=== PATIENT | female | born 1955 | race Caucasian/White ===

== ENCOUNTER 2016-12-02 18:36 | Emergency (ER) | payer OTHER ==
[~2016-12-02] VITALS: Ht 157.5 cm; Wt 78.5 kg
[~2016-12-02 18:36] MED LIST: ASPEC81 PO; ASTN NAE; ATOR-22 PO; BLAC160C PO; ESCI1TAB10 PO; LAMO100T16 PO; LEVO25TA5 PO; MULT-240 PO; OMEG12006 PO; OXYB10TA PO; RISP1TAB68 PO
[2016-12-02 18:41] VITALS: TEMP 36.6; Ht 157.5 cm; Wt 78.5 kg
[2016-12-02] MEDS ORDERED: ALBUT/IPRATROP 3MG/0.5MG NEB 3 ML VIAL INH STA (19:22)
[2016-12-02 19:49] LABS: BASO % 0.3 %; BASO ABS # 0.02 K/uL (0-0.2); COMPLETE YES; EOS % 3.2 %; HEMATOCRIT 36.8 % (37-47); IG% 0.2 %; LYMPH % 31.7 %; LYMPH ABS # 2.06 K/uL (1.2-3.4); MEAN CELL VOLUME 91.8 fL (80-100); MEAN CORPUSCULAR HEMOGLOBIN 30.9 pg (25-34); MEAN CORPUSCULAR HGB CONC 33.7 g/dl (32-36); MEAN PLATELET VOLUME 9.7 fL (7.4-10.4); MONO % 5.7 %; NEUT % 58.9 %; PLATELET COUNT 186 K/uL (130-400); RED BLOOD COUNT 4.01 M/uL (4.2-5.4)
[2016-12-02] MEDS ORDERED: PREG75CA PO (20:32)
[2016-12-02] MEDS ORDERED: SYN50 PO (20:32)
[2016-12-02] MEDS ORDERED: DTR/5 PO (20:32)
[2016-12-02] MEDS ORDERED: ATOR-24 PO (20:33)
[2016-12-02 20:34] LABS: ALB/GLOB RATIO 1.1 (0.9-2); ALKALINE PHOSPHATASE 75 U/L (45-117); ALT/SGPT 35 U/L (12-78); BLOOD UREA NITROGEN 16 mg/dl (7-18); BUN/CREATININE RATIO 14.4 (10-20); CALCIUM 9.5 mg/dl (8.5-10.1); CARBON DIOXIDE 27 mmol/L (21-32); CHLORIDE 103 mmol/L (98-107); GLUCOSE 126 mg/dl (70-99); SODIUM 138 mmol/L (136-145)
--- NOTE | 2016-12-02 20:37 | DIAGNOSTIC IMAGING REPORT ---
CHEST ONE VIEW PORTABLE HISTORY: Short of breath. COMPARISON: Chest 08/13/2015. FINDINGS: Linear densities at the left lung base. The lungs are otherwise clear. No pleural effusions. No pneumothorax. The heart is normal in size. IMPRESSION: Left basilar linear densities. This favors subsegmental atelectasis. Electronically signed by: Greg Stanley M.D. 12/02/2016 8:35 PM Dictated Date/Time: 12/02/2016 8:34 PM
--- NOTE | 2016-12-02 21:33 | EMERGENCY ROOM VISIT NOTE ---
History Report prepared by Bri: Genesis Lynn Under the Supervision of: Dr. Tyler Sears D.O. First contact with patient: 19:16 Chief Complaint: SHORTNESS OF BREATH Stated Complaint: SOB Nursing Triage Summary: Pt reports she was hospitalized November 14 for asthma exacerbation and left sided pnx Pt reports today increased SOB History of Present Illness The patient is a 61 year old female who presents to the Emergency Room with complaints of worsening SOB starting this morning. Her SOB worsened throughout the day and she called her PCP who sent her to the ED. She had this before 2.5 weeks ago when she was diagnosed with left sided pneumonia. She also has a history of asthma. Her SOB worsened today after she mowed the lawn. She reports cough, fatigue, and weakness. She has an albuterol inhaler that she uses at home , but it has not helped. She does not have a nebulizer. She was on steroids recently after being discharged from the hospital with pneumonia. Source of History: patient Onset: this morning Position: other (global) Quality: other (SOB) Timing: worsening Associated Symptoms: + cough, + fatigue, + weakness Review of Systems See HPI for pertinent positives & negatives. A total of 10 systems reviewed and were otherwise negative. Past Medical & Surgical Medical Problems: (1) Bipolar disorder (2) Dyslipidemia (3) GERD (gastroesophageal reflux disease) (4) Hypothyroidism (5) Stress incontinence Surgical Problems: (1) S/P tonsillectomy and adenoidectomy (2) S/P tubal ligation Family History No pertinent family history Social History Smoking Status: Former Smoker Marital Status: Housing Status: lives with family Current/Historical Medications Scheduled Aspirin (Aspirin EC Low Dose), 81 MG PO DAILY Atorvastatin (Lipitor), 40 MG PO HS Escitalopram Oxalate (Lexapro), 20 MG PO DAILY Lamotrigine (Lamictal), 100 MG PO DAILY Levothyroxine Sodium (Synthroid), 50 MCG PO QAM Multiple Vitamins W/ Minerals (Womens One Daily), 1 TAB PO DAILY [place]-3 Fatty Acids ([place] 3), 1 CAP PO BID Oxybutynin Chloride (Ditropan), 5 MG PO BID Pregabalin (Lyrica), 150 MG PO BID Risperidone (Risperdal), 1 MG PO HS Scheduled PRN Azelastine Hcl (Astelin Nasal [place]), 2 SPRAYS EMIGDIO BID PRN for congestion Allergies Coded Allergies: Amoxicillin (Unverified Allergy, Unknown, UNKNOWN, 12/02/16) Erythromycin (Verified Allergy, Unknown, 07/20/09) Levofloxacin (Verified Allergy, Unknown, 07/20/09) Penicillins (Verified Allergy, Unknown, 07/20/09) Sulfa Antibiotics (Verified Allergy, Unknown, ., 08/13/15) Tetracycline (Verified Allergy, Unknown, 07/20/09) Physical Exam Vital Signs Date Time Temp Pulse Resp B/P (MAP) Pulse Ox O2 Delivery O2 Flow Rate FiO2 12/02/16 20:41 80 18 110/65 93 Room Air 12/02/16 19:37 76 12/02/16 19:26 Room Air 12/02/16 18:41 36.6 83 20 144/74 99 Room Air Physical Exam CONSTITUTIONAL/VITAL SIGNS: Reviewed / noted above. GENERAL: Non-toxic in appearance. INTEGUMENTARY: Warm, dry, and [place]. HEAD: Normocephalic. EYES: without scleral icterus or trauma. ENT/OROPHARYNX: clear and moist. LYMPHADENOPATHY/NECK: Is supple without lymphadenopathy or meningismus. RESPIRATORY: Lungs clear and equal. No increased work of breathing. CARDIOVASCULAR: Regular rate and rhythm. GI/ABDOMEN: Soft and nontender. No organomegaly or pulsatile mass. No rebound or guarding. Normal bowel sounds. EXTREMITIES: Warm and well perfused. BACK: No CVA tenderness. NEUROLOGICAL: Intact without focal deficits. PSYCHIATRIC: normal affect. MUSCULOSKELETAL: Normally developed with good muscle tone. Medical Decision & Procedures ER Provider Diagnostic Interpretation: X ray results and stated below per my interpretation and radiology interpretation. CHEST ONE VIEW PORTABLE HISTORY: Short of breath. COMPARISON: Chest 08/13/2015. FINDINGS: Linear densities at the left lung base. The lungs are otherwise clear. No pleural effusions. No pneumothorax. The heart is normal in size. IMPRESSION: Left basilar linear densities. This favors subsegmental atelectasis. Electronically signed by: Greg Stanley M.D. 12/02/2016 8:35 PM Dictated Date/Time: 12/02/2016 8:34 PM Laboratory Results 12/02/16 19:39 Red Blood Count 4.01, Mean Corpuscular Volume 91.8, Mean Corpuscular Hemoglobin 30.9, Mean Corpuscular Hemoglobin Concent 33.7, Mean Platelet Volume 9.7, Neutrophils (%) (Auto) 58.9, Lymphocytes (%) (Auto) 31.7, Monocytes (%) (Auto) 5.7, Eosinophils (%) (Auto) 3.2, Basophils (%) (Auto) 0.3, Neutrophils # (Auto) 3.83, Lymphocytes # (Auto) 2.06, Monocytes # (Auto) 0.37, Eosinophils # (Auto) 0.21, Basophils # (Auto) 0.02 12/02/16 19:39 Test 12/02/16 19:39 White Blood Count 6.50 K/uL (4.8-10.8) Red Blood Count 4.01 M/uL (4.2-5.4) Hemoglobin 12.4 g/dL (12.0-16.0) Hematocrit 36.8 % (37-47) Mean Corpuscular Volume 91.8 fL (80-100) Mean Corpuscular Hemoglobin 30.9 pg (25-34) Mean Corpuscular Hemoglobin Concent 33.7 g/dl (32-36) Platelet Count 186 K/uL (130-400) Mean Platelet Volume 9.7 fL (7.4-10.4) Neutrophils (%) (Auto) 58.9 % Lymphocytes (%) (Auto) 31.7 % Monocytes (%) (Auto) 5.7 % Eosinophils (%) (Auto) 3.2 % Basophils (%) (Auto) 0.3 % Neutrophils # (Auto) 3.83 K/uL (1.4-6.5) Lymphocytes # (Auto) 2.06 K/uL (1.2-3.4) Monocytes # (Auto) 0.37 K/uL (0.11-0.59) Eosinophils # (Auto) 0.21 K/uL (0-0.5) Basophils # (Auto) 0.02 K/uL (0-0.2) RDW Standard Deviation 44.8 fL (36.4-46.3) RDW Coefficient of Variation 13.3 % (11.5-14.5) Immature Granulocyte % (Auto) 0.2 % Immature Granulocyte # (Auto) 0.01 K/uL (0.00-0.02) Anion Gap 8.0 mmol/L (3-11) Est Creatinine Clear Calc Drug Dose 52.8 ml/min Estimated GFR () 63.2 Estimated GFR (Non- 54.5 BUN/Creatinine Ratio 14.4 (10-20) Calcium Level 9.5 mg/dl (8.5-10.1) Total Bilirubin 0.4 mg/dl (0.2-1) Aspartate Amino Transf (AST/SGOT) U/L (15-37) Alanine Aminotransferase (ALT/SGPT) 35 U/L (12-78) Alkaline Phosphatase 75 U/L (45-117) Total Creatine Kinase U/L (26-192) Creatine Kinase MB 2.1 ng/ml (0.5-3.6) Creatine Kinase MB Ratio (0-3.0) Troponin I < 0.015 ng/ml (0-0.045) Total Protein 7.2 gm/dl (6.4-8.2) Albumin 3.7 gm/dl (3.4-5.0) Globulin 3.5 gm/dl (2.5-4.0) Albumin/Globulin Ratio 1.1 (0.9-2) Laboratory results as stated above per my review. Medications Administered Medications (Trade) Dose Ordered Sig/Tabatha Route Start Time Stop Time Status Last Admin Dose Admin Albuterol/ Ipratropium (Duoneb) 3 ml NOW STAT INH 12/02/16 19:22 12/02/16 19:23 DC 12/02/16 20:00 3 ML ECG Indication: SOB/dyspnea Rate (beats per minute): 76 Rhythm: normal sinus Findings: no ectopy, other (no acute injury) ED Course 1917: Previous medical records were reviewed. The patient was evaluated in room C6. A complete history and physical examination was performed. 1921: Duoneb 3 ml INH. 2137: On reevaluation, the patient is resting comfortably. I discussed the results and findings with the patient. She verbalized agreement of the treatment plan. She was discharged home. Medical Decision the differential was considered includes acute myocardial infarction, acute coronary syndrome, myocarditis, pericarditis, pericardial effusions /tamponade, esophageal perforation, pulmonary embolism, pneumonia, pneumothorax, cardiomyopathy, congestive heart, anemia , COPD/asthma exacerbation. Patient was found to have a slightly elevated blood pressure due to circumstances. I do not believe that the patient requires hypertension monitoring. Medication Reconciliation: I attest that I have personally reviewed the patient' s current medication list. This is a 61-year-old female who presents to the ED with a chief complaint of shortness of breath. The patient reports increased shortness of breath today as well as a cough and some generalized weakness. She has a history of asthma. She denies any other significant symptoms. She does report being on steroids November 14 and she had a pneumonia that time. Her vital signs are stable. Her physical exam was normal. EKG shows a normal sinus rhythm. A chest x-ray did not show acute disease. CBC is normal, complete metabolic panel was unremarkable. Troponin was negative. The patient was told the results of the test. She is felt to be stable for discharge and outpatient follow-up. She was given a nebulizer treatment here. Impression Primary Impression: Dyspnea Additional Impression: Bronchitis Scribe Attestation The scribe's documentation has been prepared under my direction and personally reviewed by me in its entirety. I confirm that the note above accurately reflects all work, treatment, procedures, and medical decision making performed by me. Departure Information Dispostion Home / Self-Care Referrals Jimmy Valdivia M.D. (PCP) Patient Instructions ED Dyspnea Shortness of Breath, My [facility] Additional Instructions Continue use of your inhaler. Follow-up with your doctor for further care and evaluation in 1-2 days. Return to the emergency department for worsening or new symptoms or any concerns. You have been examined and treated today on an emergency basis only. This is not a substitute for, or an effort to provide, complete comprehensive medical care. It is impossible to recognize and treat all injuries or illnesses in a single emergency department visit. It is therefore important that you follow up closely with your doctor. Call as soon as possible for an appointment. Problem Qualifiers
[2016-12-02 21:41] VITALS: BP 116/78; PULSE 83; O2SAT 98
== END 2016-12-02 21:41 | disposition home or self-care (01) ==
LOC: C.EDB 18:36 → C.EDC 21:41
DX: J40 Bronchitis, not specified as acute or chronic (principal); F41.9 Anxiety disorder, unspecified; R78.5 Finding of other psychotropic drug in blood; E03.9 Hypothyroidism, unspecified; K21.9 Gastro-esophageal reflux disease without esophagitis; Z98.51 Tubal ligation status; Z98.890 Other specified postprocedural states; Z87.891 Personal history of nicotine dependence; Z79.82 Long term (current) use of aspirin; Z79.899 Other long term (current) drug therapy; Z88.0 Allergy status to penicillin; Z88.1 Allergy status to other antibiotic agents; Z88.2 Allergy status to sulfonamides; Z88.3 Allergy status to other anti-infective agents; Z88.8 Allergy status to other drugs, medicaments and biological substances

== ENCOUNTER 2022-08-21 10:20 | Inpatient (IN) ==
--- NOTE | 2022-08-21 11:09 | Emergency Department Note ---
History of Present Illness General Chief complaint: Mental Health Evaluation Stated complaint: DEPRESSION,PARANOIA Time Seen by Provider: 08/21/22 10:44 Source: patient Mode of arrival: ambulatory Limitations: no limitations History of Present Illness Maximum Pain Intensity: 5 This patient is 66-year-old female who has history of bipolar comes in after having depression and anxiety. She had a stroke several years ago and has had problems with depression and anxiety since. She had been staying with her left him 5 days ago and went to live with the mother and now she is living with a brother who is also going out of town. She denies suicidal ideation she is very paranoid she says she is crying a lot and feels that people are turning on the lights and things are happening and that she did not do. She says that her sleep been okay because she takes medications denies suicidal ideations or attempts no homicidal ideations denies trauma. She does not take her medication as directed as it makes her too tired. No fever. no sick contacts. she does have a mild chronic cough she is followed by T[facility] as well as Dr. Sheldon. Home Medications Medication Instructions Recorded Confirmed Type albuterol sulfate 90 mcg/actuation 2 puff inhalation QID PRN 06/07/22 08/21/22 History aerosol inhaler Shortness Of Breath Or Wheezing atorvastatin 80 mg tablet 80 mg PO HS 06/07/22 08/21/22 History hydroxyzine HCl 25 mg tablet 25 - 50 mg PO Q6H PRN Itching 06/07/22 08/21/22 History levothyroxine 25 mcg tablet 25 mcg PO DAILYBB 06/07/22 08/21/22 History melatonin 5 mg tablet 5 mg PO HS 06/07/22 08/21/22 History multivitamin 1 tab PO DAILY 06/07/22 08/21/22 History multivitamin 1 tab PO DAILY 06/07/22 08/21/22 History deutetrabenazine 6 mg tablet 6 mg PO BID 08/21/22 08/21/22 History (Austedo) deutetrabenazine 9 mg tablet 9 mg PO BID 08/21/22 08/21/22 History (Austedo) ezetimibe 10 mg tablet 10 mg PO DAILY 08/21/22 08/21/22 History lurasidone 80 mg tablet (Latuda) 80 mg PO DAILY 08/21/22 08/21/22 History oxybutynin chloride 15 mg 15 mg PO DAILY 08/21/22 08/21/22 History tablet,extended release 24 hr Allergies Allergy/AdvReac Type Severity Reaction Status Date / Time sulfamethoxazole Allergy Severe Anaphylaxis Verified 06/07/22 01:02 [From Bactrim] trimethoprim [From Bactrim] Allergy Severe Anaphylaxis Verified 06/07/22 01:02 amoxicillin Allergy Intermediate Hives Verified 06/07/22 01:02 erythromycin base Allergy Intermediate Hives Verified 06/07/22 01:02 Penicillins Allergy Intermediate Hives Verified 06/07/22 01:02 Sulfa (Sulfonamide Allergy Intermediate Hives Verified 06/07/22 01:02 Antibiotics) bacitracin Allergy Unknown ON [facility] MED Verified 06/07/22 01:02 LIST levofloxacin Allergy Unknown Unknown Verified 06/07/22 01:02 tetracycline Allergy Unknown Unknown Verified 06/07/22 01:02 nitrofurantoin AdvReac Intermediate Tachycardia Verified 06/07/22 01:02 [From Macrobid] Past Med/Surg History Social History Smoking Status: Current every day smoker Tobacco Type: Cigarettes Preferred Language: Citizen Of [place] Feels Safe at Home: Yes Gender Identity: Female Immunizations: Past medical history CVA. She tells me she has no residual symptoms from this or deficits. COPD she uses inhalers she does not use nebs or oxygen. Social history she recently left her and has been staying with her brother who is going out of town Review of Systems A total of 10 systems reviewed and were otherwise negative Physical Exam Vital Signs Vital Signs - 24 hr 08/21/22 10:30 Temperature 36.6 C Temperature Source Temporal Artery Scan Pulse Rate 102 H Respiratory Rate 20 Respiratory Effort / Characteristics Non-Labored Respiratory Depth Normal Blood Pressure 143/88 H Blood Pressure Mean 106 Pulse Oximetry 100 Oxygen Delivery Method Room Air Sepsis Recent Fever Within 48 Hours No Sepsis New/Unexplained Change in Mental Status N/A Sepsis Action Taken by Nursing No Action Required General: Well developed well nourished middle-age female who is teary-eyed when I talk to her but otherwise in no acute distress, breathing comfortably on room air. Normal speech HEENT: Normal cephalic atraumatic. Pupils are equal round and reactive to light. Extraocular movements are intact. Oropharynx is pink with moist mucous membranes. No swelling of the mouth lips or tongue. Normal speech. Neck: Supple with a midline trachea. No meningeal signs or stiffness, no JVD or bruits. No Stridor. Chest: Clear to auscultation bilaterally. No wheezes or rhonchi. No increased work of breathing. Heart: Regular rate and rhythm without murmurs or gallops. Abdomen: Soft nontender, nondistended without rebound guarding or rigidity. Extremities: No cyanosis clubbing or edema. No calf tenderness or assymetry Spine/Back. Non tender to palpation. No CVA tenderness Skin: Good turgor without rashes. Neurologic exam: Cranial nerves two through 12 are intact. Motor and sensation are intact and symmetrical throughout. No tremor Course Administered Medications Nicotine Polacrilex (Nicotine Polacrilex 2 Mg Gum) 1 piece MT PRN PRN PRN Reason: Anxiety/Agitation Stop: 09/20/22 13:10 Last Admin: 08/21/22 15:37 Dose: 1 piece Documented By: Admin: 08/21/22 13:31 Dose: 1 piece Documented By: [id number] Medical Decision Making Differential Diagnosis Depression, anxiety, toxicologic, metabolic, electrolyte, dehydration Medical Records Attestation: I reviewed the patient's medical records. Home Medications Current Medication List: was personally reviewed by me Laboratory Data Attestation: I reviewed the patient's lab results. 08/21/22 11:36 08/21/22 12:44 Lab Results 08/21/22 08/21/22 08/21/22 Range/Units 10:50 10:50 11:36 WBC 10.30 (4.8-10.8) K/ul RBC 4.28 (4.20-5.40) M/uL Hgb 13.6 (12.0-16.0) g/dl Hct 39.3 (37.0-47.0) % MCV 91.8 (80.0-100.0) fL MCH 31.8 (25.0-34.0) pg MCHC 34.6 (32.0-36.0) g/dL RDW Std Deviation 41.9 (36.4-46.3) fL RDW Coeff of Og 12.5 (11.5-14.5) % Plt Count 328 (130-400) K/uL MPV 9.2 L (9.4-12.4) fL Immature Gran % (Auto) 0.4 % Neut % (Auto) 80.6 % Lymph % (Auto) 12.9 % [place] % (Auto) 5.0 % Eos % (Auto) 0.7 % Baso % (Auto) 0.4 % Neut # (Auto) 8.30 H (1.40-6.50) K/uL Lymph # (Auto) 1.33 (1.2-3.4) K/uL [place] # (Auto) 0.52 (0.11-0.59) K/uL Eos # (Auto) 0.07 (0-0.50) K/uL Baso # (Auto) 0.04 (0-0.2) K/uL Immature Gran # (Auto) 0.04 (0.01-0.20) K/uL Sodium (136-145) mmol/L Potassium Chloride (98-107) mmol/L Carbon Dioxide (21-32) mmol/L Anion Gap (3-11) BUN (6-23) mg/dl Creatinine (0.6-1.2) mg/dl Est Cr Clr Drug Dosing ml/min Est GFR ( Amer) ml/min Est GFR (Non-Af Amer) ml/min BUN/Creatinine Ratio (10-20) Glucose (70-99(Fasting)) mg/dl Calcium (8.5-10.1) mg/dl Total Bilirubin (0.2-1.0) mg/dl AST ALT (7-52) U/L Alkaline Phosphatase (34-104) U/L Total Protein (6.0-8.3) gm/dl Albumin (3.4-5.0) gm/dl Globulin (2.5-4.0) gm/dl Albumin/Globulin Ratio (0.9-2) Lipase (11-82) U/L TSH (0.300-4.500) uIu/ml Urine Color Dark Yellow Urine Appearance Turbid A (Clear) Urine pH 8.0 H (4.5-7.5) Ur Specific [place] 1.024 (1.000-1.030) Urine Protein 2+ H (Negative) Urine Glucose (UA) Negative (Negative) Urine Ketones Negative (Negative) Urine Blood 1+ H (Negative) Urine Nitrite Negative (Negative) Urine Bilirubin Negative (Negative) Urine Urobilinogen Negative (Negative) Ur Leukocyte Esterase 3+ H (Negative) Urine WBC (Auto) >30 H (0-5) /hpf Urine RBC (Auto) 5-10 H (0-4) /hpf U Hyaline Cast (Auto) 1-5 (0-5) /lpf U Epithel Cells (Auto) >30 H (0-5) /lpf Urine Bacteria (Auto) 4+ H (Negative) Urine Yeast Not Reportable Urine Opiates Screen Neg (Neg) Ur Methadone, Qual Neg (Neg) Urine Barbiturates Neg (Neg) Carbamazepine (4-12) mcg/ml Ur Phencyclidine (PCP) Neg (Neg) U Amphetamin/Meth Scrn Neg (Neg) MDMA (Ecstasy) Screen Neg (Neg) U Benzodiazepines Scrn Pos H (Neg) Ur Cocaine Metabolite Neg (Neg) U Marijuana (THC) Screen Neg (Neg) Ethyl Alcohol mg/dL (<10.0) mg/dl SARS-CoV-2, RNA, NAAT (NEGATIVE) 08/21/22 08/21/22 08/21/22 Range/Units 11:36 11:36 11:36 WBC (4.8-10.8) K/ul RBC (4.20-5.40) M/uL Hgb (12.0-16.0) g/dl Hct (37.0-47.0) % MCV (80.0-100.0) fL MCH (25.0-34.0) pg MCHC (32.0-36.0) g/dL RDW Std Deviation (36.4-46.3) fL RDW Coeff of Og (11.5-14.5) % Plt Count (130-400) K/uL MPV (9.4-12.4) fL Immature Gran % (Auto) % Neut % (Auto) % Lymph % (Auto) % [place] % (Auto) % Eos % (Auto) % Baso % (Auto) % Neut # (Auto) (1.40-6.50) K/uL Lymph # (Auto) (1.2-3.4) K/uL [place] # (Auto) (0.11-0.59) K/uL Eos # (Auto) (0-0.50) K/uL Baso # (Auto) (0-0.2) K/uL Immature Gran # (Auto) (0.01-0.20) K/uL Sodium 134 L (136-145) mmol/L Potassium TNP Chloride 98 (98-107) mmol/L Carbon Dioxide 30 (21-32) mmol/L Anion Gap 6 (3-11) BUN 14 (6-23) mg/dl Creatinine 0.78 (0.6-1.2) mg/dl Est Cr Clr Drug Dosing 56.9 ml/min Est GFR ( Amer) 92.5 ml/min Est GFR (Non-Af Amer) 79.8 ml/min BUN/Creatinine Ratio 17.9 (10-20) Glucose 110 H (70-99(Fasting)) mg/dl Calcium 10.3 H (8.5-10.1) mg/dl Total Bilirubin 0.4 (0.2-1.0) mg/dl AST TNP ALT 27 (7-52) U/L Alkaline Phosphatase 84 (34-104) U/L Total Protein 8.2 (6.0-8.3) gm/dl Albumin 5.3 H (3.4-5.0) gm/dl Globulin 2.9 (2.5-4.0) gm/dl Albumin/Globulin Ratio 1.8 (0.9-2) Lipase 12 (11-82) U/L TSH 1.253 (0.300-4.500) uIu/ml Urine Color Urine Appearance (Clear) Urine pH (4.5-7.5) Ur Specific [place] (1.000-1.030) Urine Protein (Negative) Urine Glucose (UA) (Negative) Urine Ketones (Negative) Urine Blood (Negative) Urine Nitrite (Negative) Urine Bilirubin (Negative) Urine Urobilinogen (Negative) Ur Leukocyte Esterase (Negative) Urine WBC (Auto) (0-5) /hpf Urine RBC (Auto) (0-4) /hpf U Hyaline Cast (Auto) (0-5) /lpf U Epithel Cells (Auto) (0-5) /lpf Urine Bacteria (Auto) (Negative) Urine Yeast Urine Opiates Screen (Neg) Ur Methadone, Qual (Neg) Urine Barbiturates (Neg) Carbamazepine < 2.0 L (4-12) mcg/ml Ur Phencyclidine (PCP) (Neg) U Amphetamin/Meth Scrn (Neg) MDMA (Ecstasy) Screen (Neg) U Benzodiazepines Scrn (Neg) Ur Cocaine Metabolite (Neg) U Marijuana (THC) Screen (Neg) Ethyl Alcohol mg/dL (<10.0) mg/dl SARS-CoV-2, RNA, NAAT (NEGATIVE) 08/21/22 08/21/22 08/21/22 Range/Units 11:42 12:44 13:55 WBC (4.8-10.8) K/ul RBC (4.20-5.40) M/uL Hgb (12.0-16.0) g/dl Hct (37.0-47.0) % MCV (80.0-100.0) fL MCH (25.0-34.0) pg MCHC (32.0-36.0) g/dL RDW Std Deviation (36.4-46.3) fL RDW Coeff of Og (11.5-14.5) % Plt Count (130-400) K/uL MPV (9.4-12.4) fL Immature Gran % (Auto) % Neut % (Auto) % Lymph % (Auto) % [place] % (Auto) % Eos % (Auto) % Baso % (Auto) % Neut # (Auto) (1.40-6.50) K/uL Lymph # (Auto) (1.2-3.4) K/uL [place] # (Auto) (0.11-0.59) K/uL Eos # (Auto) (0-0.50) K/uL Baso # (Auto) (0-0.2) K/uL Immature Gran # (Auto) (0.01-0.20) K/uL Sodium (136-145) mmol/L Potassium 4.2 Chloride (98-107) mmol/L Carbon Dioxide (21-32) mmol/L Anion Gap (3-11) BUN (6-23) mg/dl Creatinine (0.6-1.2) mg/dl Est Cr Clr Drug Dosing ml/min Est GFR ( Amer) ml/min Est GFR (Non-Af Amer) ml/min BUN/Creatinine Ratio (10-20) Glucose (70-99(Fasting)) mg/dl Calcium (8.5-10.1) mg/dl Total Bilirubin (0.2-1.0) mg/dl AST 24 ALT (7-52) U/L Alkaline Phosphatase (34-104) U/L Total Protein (6.0-8.3) gm/dl Albumin (3.4-5.0) gm/dl Globulin (2.5-4.0) gm/dl Albumin/Globulin Ratio (0.9-2) Lipase (11-82) U/L TSH (0.300-4.500) uIu/ml Urine Color Urine Appearance (Clear) Urine pH (4.5-7.5) Ur Specific [place] (1.000-1.030) Urine Protein (Negative) Urine Glucose (UA) (Negative) Urine Ketones (Negative) Urine Blood (Negative) Urine Nitrite (Negative) Urine Bilirubin (Negative) Urine Urobilinogen (Negative) Ur Leukocyte Esterase (Negative) Urine WBC (Auto) (0-5) /hpf Urine RBC (Auto) (0-4) /hpf U Hyaline Cast (Auto) (0-5) /lpf U Epithel Cells (Auto) (0-5) /lpf Urine Bacteria (Auto) (Negative) Urine Yeast Urine Opiates Screen (Neg) Ur Methadone, Qual (Neg) Urine Barbiturates (Neg) Carbamazepine (4-12) mcg/ml Ur Phencyclidine (PCP) (Neg) U Amphetamin/Meth Scrn (Neg) MDMA (Ecstasy) Screen (Neg) U Benzodiazepines Scrn (Neg) Ur Cocaine Metabolite (Neg) U Marijuana (THC) Screen (Neg) Ethyl Alcohol mg/dL < 10.0 (<10.0) mg/dl SARS-CoV-2, RNA, NAAT NEGATIVE (NEGATIVE) MDM Narrative This patient comes in as described above. She was placed in room A7. She is been teary-eyed and feeling depressed very paranoid she is not taking her medications because they make her sleepy. She is here with her brother. She feels that she needs to be admitted and cannot care for self at home. She has a history of stroke but has no neurologic deficits, headache, or anything to suggest an acute stroke. She had multiple blood testing and COVID testing and urine obtained for medical clearance. She has no significant electrolyte or metabolic abnormalities. She has no suggest infection or endocrinologic or acute toxicologic process causing her symptoms. She was further evaluated by [facility] and they will be admitting her for further inpatient treatment and ev aluation. COVID testing was negative. Impression & Plan Bipolar disorder, Anxiety, Paranoid, Lab test negative for COVID-19 virus Discharge Plan Visit Data Chief Complaint: Mental Health Evaluation Stated Complaint: DEPRESSION,PARANOIA ED Provider: Helder Greenberg Discharge Problem: Bipolar disorder, Anxiety, Paranoid, Lab test negative for COVID-19 virus Forms Stand Alone Forms: Community [facility], Suicide Prevention Resources Prescriptions Prescriptions: No Action multivitamin [Hair,Nails and Skin Vitamin] Tablet 1 tab PO DAILY multivitamin [Daily Multivitamin] Tablet 1 tab PO DAILY atorvastatin 80 mg Tablet 80 mg PO HS levothyroxine 25 mcg tablet 25 mcg PO DAILYBB hydroxyzine HCl 25 mg tablet 25 - 50 mg PO Q6H PRN (Reason: Itching) albuterol sulfate 90 mcg/actuation Hfa Aerosol Inhaler 2 puff INHALATION QID PRN (Reason: Shortness Of Breath Or Wheezing) melatonin 5 mg Tablet 5 mg PO HS oxybutynin chloride 15 mg Tablet Extended Release 24hr 15 mg PO DAILY ezetimibe 10 mg Tablet 10 mg PO DAILY lurasidone [Latuda] 80 mg Tablet 80 mg PO DAILY Rx Instructions: must administer with food (at least 350 calories) [place] 6 mg Tablet 6 mg PO BID [place] 9 mg Tablet 9 mg PO BID Referrals Referrals: Jimmy Valdivia MD [Primary Care Provider] -
[2022-08-21 11:55] LABS: Appearance Urine Turbid (Clear); Bacteria Urine Automated 4+ (Negative); Bilirubin Urine Negative (Negative); Blood Urine 1+ (Negative); Color Urine Dark Yellow; Epithelial Cell Urine Auto >30 /lpf (0-5); Glucose Urine UA Negative (Negative); Ketones Urine Negative (Negative); Leukocyte Esterase Urine 3+ (Negative); Nitrite Urine Negative (Negative); Specific Gravity Urine 1.024 (1.000-1.030); Urobilinogen Urine Negative (Negative); WBC Urine Automated >30 /hpf (0-5)
[2022-08-21 11:59] LABS: Protein Urine 2+ (Negative)
[2022-08-21 12:10] LABS: Basophils # (auto) 0.04 K/uL (0-0.2); Basophils % (auto) 0.4 %; Eosinophils # (auto) 0.07 K/uL (0-0.50); Eosinophils % (auto) 0.7 %; Hematocrit (blood only) 39.3 % (37.0-47.0); Hemoglobin 13.6 g/dl (12.0-16.0); Immature Granulocytes # (auto) 0.04 K/uL (0.01-0.20); Immature Granulocytes % (auto) 0.4 %; Lymphocytes # (auto) 1.33 K/uL (1.2-3.4); Lymphocytes % (auto) 12.9 %; Mean Corpuscular Hemoglobin 31.8 pg (25.0-34.0); Mean Corpuscular Hgb Conc 34.6 g/dL (32.0-36.0); Mean Corpuscular Volume 91.8 fL (80.0-100.0); Mean Platelet Volume 9.2 fL (9.4-12.4); Monocytes # (auto) 0.52 K/uL (0.11-0.59); Neutrophils % (auto) 80.6 %; Platelet Count 328 K/uL (130-400); RDW Coefficient of Variation 12.5 % (11.5-14.5); RDW Standard Deviation 41.9 fL (36.4-46.3); Red Blood Count 4.28 M/uL (4.20-5.40)
[2022-08-21 12:23] LABS: Alanine Aminotransferase 27 U/L (7-52); Albumin Globulin Ratio 1.8 (0.9-2); Albumin Level 5.3 gm/dl (3.4-5.0); Alkaline Phosphatase 84 U/L (34-104); Anion Gap 6 (3-11); BUN Creatinine Ratio 17.9 (10-20); Bilirubin,Total 0.4 mg/dl (0.2-1.0); Blood Urea Nitrogen 14 mg/dl (6-23); Calcium 10.3 mg/dl (8.5-10.1); Carbon Dioxide 30 mmol/L (21-32); Chloride 98 mmol/L (98-107); Creatinine Clr Calc Pharmacy 56.9 ml/min; Est GFR (African American) 92.5 ml/min; Est GFR (Non-African American) 79.8 ml/min; Globulin 2.9 gm/dl (2.5-4.0); Glucose 110 mg/dl (70-99(Fasting)); Lipase 12 U/L (11-82); Sodium 134 mmol/L (136-145); Total Protein 8.2 gm/dl (6.0-8.3)
[2022-08-21 13:23] LABS: Potassium 4.2 mmol/L (3.5-5.1)
[2022-08-21] MEDS: NICOTINE POLACRILEX 2 MG GUM MT PRN ×2 (13:31→15:37)
[2022-08-21 14:44] LABS: Amphetamines+Metham, Urine Neg (Neg); Barbiturates, Urine Neg (Neg); Benzodiazepine, Urine Pos (Neg); Cocaine, Urine Neg (Neg); MDMA (Ecstacy), Urine Neg (Neg); Methadone, Urine Neg (Neg); Opiate, Urine Neg (Neg); Phencyclidine, Urine Neg (Neg)
[2022-08-21] MEDS ORDERED: ALUMINUM/MAGNESIUM SUSP 30 ML UDC PO PRN (18:37)
[2022-08-21] MEDS ORDERED: BISMUTH SUBSALICYLATE LIQD 236 ML PO PRN (18:37)
[2022-08-21] MEDS ORDERED: SODIUM CHLORIDE 0.65% NA SOLN 45 ML (OCEAN) PRN (18:37)
[2022-08-21] MEDS ORDERED: ALBUTEROL HFA 8 GM INHALER INH PRN (18:41)
[2022-08-21] MEDS: hydrOXYzine HCl 25 MG TAB PO PRN (19:10)
[2022-08-21] MEDS: OLANZapine 5 MG TABLET PO SCH (21:41)
[2022-08-21] MEDS ORDERED: ATORVASTATIN 40 MG TAB PO SCH (22:00)
[2022-08-22] MEDS: NICOTINE 21 MG/24 HR TDSY TD SCH (08:04)
[2022-08-22] MEDS: NICOTINE POLACRILEX 2 MG GUM MT PRN (08:08)
[2022-08-22] MEDS: hydrOXYzine HCl 25 MG TAB PO PRN ×2 (08:55→23:04)
[2022-08-22] MEDS ORDERED: ALBUTEROL HFA 8 GM INHALER INH PRN (12:01)
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
[2022-08-22] MEDS: OXYBUTYNIN CHLORIDE XL 5 MG TABCR PO SCH (12:34)
[2022-08-22] MEDS: MULTIVITAMIN TAB PO SCH (12:35)
[2022-08-22] MEDS: EZETIMIBE 10 MG TABLET PO SCH (12:35)
[2022-08-22] MEDS ORDERED: NICOTINE 2 MG PO PRN ×2 (12:48→13:55)
[2022-08-22] MEDS: ACETAMINOPHEN 325 MG TAB PO PRN (13:00)
[2022-08-22] MEDS: hydrOXYzine HCl 10 MG TAB PO PRN (16:00)
[2022-08-22] MEDS: NICOTINE 2 MG PO PRN ×5 (16:46→22:44)
[2022-08-22] MEDS: ATORVASTATIN 40 MG TAB PO SCH (21:01)
[2022-08-22] MEDS: OLANZapine 5 MG TABLET PO SCH (21:01)
[2022-08-22] MEDS: AUSTEDO 9 MG PO SCH (21:02)
[2022-08-22] MEDS: AUSTEDO 6 MG PO SCH (21:02)
[2022-08-23] MEDS: NICOTINE 2 MG PO PRN ×8 (06:44→22:03)
[2022-08-23 07:38] LABS: Chol HDL Ratio 1.9 (0-5)
[2022-08-23] MEDS: NICOTINE 21 MG/24 HR TDSY TD SCH (09:01)
[2022-08-23] MEDS: ACETAMINOPHEN 325 MG TAB PO PRN ×2 (09:01→17:54)
[2022-08-23] MEDS: MULTIVITAMIN TAB PO SCH (09:01)
[2022-08-23] MEDS: OXYBUTYNIN CHLORIDE XL 5 MG TABCR PO SCH (09:01)
[2022-08-23] MEDS: EZETIMIBE 10 MG TABLET PO SCH (09:01)
--- NOTE | 2022-08-23 09:30 | Psychiatric Progress Note ---
Date of Service August 23, 2022 Impression / Recommendations Impression Red Chase is a 66 year old woman with a history of BPAD and JELLY who was admitted for worsening depression, inability to care for herself and increased paranoia in the setting of medication non-adherence due to side effects. Diagnostically consistent with bipolar affective disorder current depressive episode with psychotic features. She is deemed unstable and requires psychiatric hospitalization for diagnostic clarification, safety and stabilization, medication management and development of further coping skills. Discussed medication treatment options in detail. Discussed risks, benefits and alternatives. Patient would like to start and consented to olanzapine for BPAD mood stabilizer. Reviewed side effects including but not limited to: movement (TD, NMS), cardiac (QTc prolongation), and metabolic (stroke, insulin resistance) and necessity for fasting lipid and glucose labwork and AIMS done with score of 2 (few notable symptoms as she is currently on Austedo). MNPR due to increased paranoia/anxiety 08/23/2022: Has been increasingly irritable since admission. She continues to refer to "things going on at the house" such as finding subtle scratches on appliances. She gives a somewhat anfractuous tale of feeling as if she had to leave her home due to being convinced someone was or had been in the house. She went to her mother's house while her mother was away in [place]. Pt notes that this house has smart locks, so it may well have other smarthome features. She became concerned that lights turned on and off seemingly on their own, but can't accept that they may have been programmed to do so in the supervisor tumbling and rolling's absence. She found the (smart) lock unlocked when she was certain she'd locked it. As with the lights, she can't consider any prosaic explanations such as that it could have been misco nfigured. She fled to her brother's house where again she saw evidence of mysterious doings. She is quite precoccupied with these thoughts. Pt reports she's been "using those nicotine mints" (nicotine lozenges) "[id number] all day long" and asks that I prescribe them that way here. I explained that this would be a very excessive dose of nicotine and that the way they're currently ordered (every 2 hours, in addition to 21 mg nicotine patch) was the most I'd be willing to order. She was not willing to consider that greatly excessive nicotine could have played a role in her symptoms. A while a fter the interview had concluded, pt accosted me and a staff member in the hallway, insisting I'd "promised to increase the mints" and was very difficult to redirect from this. We reviewed her medication history. She reports no benefit on lurasidone (but isn't sure how she used it), quetiapine "made the movements worse", and says she has taken no other similar medication (despite there putatively having been something previous to the quetiapine with which involuntary movements were initially associated). She's somewhat hesitant about olanzapine but has had no actual adverse experiences that she attributes to it. I reinforced that I think olanzapine is likely to be a good medication for her. Reviewed with pt her (normal) fasting glucose and lipids panel. (1) Bipolar affective disorder, depressed, severe, with psychotic behavior: Present on Admission?: Yes (2) JELLY (generalized anxiety disorder): Present on Admission?: Yes (3) Dyslipidemia: Plan 08/23/2022: * continue olanzapine 5 mg QHS * add olanzapine ODT 5 mg PO or olanzapine 5 mg IM PRN psychosis or eduard given demonstrated tendency to escalate rapidly * continue deutetrabenazine 08/22/2022: [facility] on q15 min checks (behavioral with suicide precautions) for safety. The patient will participate in group, recreational, and milieu therapies and will be offered additional individual and family sessions as clinically approp reyes. -Fasting glucose and lipid panel tomorrow AM -Start olanzapine 5mg HS -Continue prior to admission Austedo Inventory Assets Strengths: supportive relationships, willing to get treatment, outpatient providers Needs: safety and stabilization, medication adjustment, additional coping skills, increased outpatient services Suicide Risk Level Suicide Risk Level: Moderate (q15 min suicide checks) (severe depression with paranoia/psychosis but feels safe in the hospital, able to safety contract and agrees to let nursing/staff know should they develop plan, intent or feel unable to remain safe.) Suicide Risk Level Comments: Risk Factors Assessment Male: No : Yes Do You Have Access To A Gun?: Yes (the gun is at her brother's home) Health Problems: Yes Mental Health Diagnoses: Yes Substance Use Disorders: No Previous Attempt: No Family History of Suicide: No Previous Psychiatric Hospitalization: Yes Hopelessness: Yes Protective Factors Assessment : Yes Employed: No Stable Relationships: Yes Supportive Family: Yes Good Rapport with Provider: Yes Interval History Identifying Information RED CHASE is a 66-year-old F who currently lives in [place] with her , has a history of BPAD with history of psychotic depression, JELLY, and was admitted on 08/21/22 15:18 on a 201 voluntary commitment for severe depression and concern for worsening paranoia and inability care for herself. Chief Complaint "[]". Review of Systems Sleep Information Total Hours of Sleep: 6.5 Meal Information Percent Meal Consumed - Breakfast: 100 Percent Meal Consumed - Lunch: 100 Percent Meal Consumed - Dinner: 100 Subjective Subjective Patient was seen & assessed and interval progress reviewed with treatment team (nursing and social work) Physical Exam Psychiatric Orientation: alert, oriented to person, oriented to place, oriented to time and + guarded Apperance: appropriately dressed and appropriately groomed Eye Contact: + fair eye contact Motor Behavior: no abnormal motor movements Speech: normal rate/rhythm/volume of speech Affect: + labile affect and + irritable affect Mood: + irritable mood and + dysphoric mood Thought Process: + circumstantial thought process and + tangential thought process Thought Content: + paranoid and reality based without delusions Suicidal Thoughts: denies suicidal thoughts, denies suicidal plan and denies suicidal intent Homicidal Thoughts: denies homicidal thoughts Hallucinations: no auditory hallucinations and no visual hallucinations Cognition: recent memory grossly intact, remote memory grossly intact, attention grossly intact and language grossly intact Estimated Intelligence: consistent with education level Insight: + limited insight and + fair insight Judgment: + limited judgement and + fair judgement Vital Signs (Past 24 Hours) Last Vital Signs Temp 36.5 C 08/23/22 06:41 Pulse 80 08/23/22 06:41 Resp 16 08/23/22 06:41 BP 127/75 08/23/22 06:41 Pulse Ox 100 08/21/22 10:30 O2 Del Method Room Air 08/21/22 10:30 Results & Data ([facility]) Laboratory Results Laboratory Results - last 24 hr 08/23/22 07:07 Fasting Glucose 98 Triglycerides 100 Cholesterol 137 LDL Cholesterol, Calc 46 VLDL Cholesterol, Calc 20 HDL Cholesterol 71 Cholesterol/HDL Ratio 1.9 Current Inpatient Medications Current Inpatient Medications: Current Inpatient Medications Acetaminophen (Acetaminophen 325 Mg Tab) 650 mg PO Q4H PRN PRN Reason: Headache or Minor Fever Stop: 09/20/22 18:36 Last Admin: 08/23/22 09:01 Dose: 650 mg Al Hydrox/Mg Hydrox/Simethicone (Aluminum/Magnesium Susp 30 Ml Udc) 30 ml PO Q4H PRN PRN Reason: GI Upset Stop: 09/20/22 18:36 Albuterol (Albuterol Hfa 8 Gm Inhaler) 2 puffs INH QID PRN PRN Reason: Shortness Of Breath Or Wheezing Stop: 09/21/22 12:00 Atorvastatin Calcium (Atorvastatin 40 Mg Tab) 80 mg PO HS GRIFFIN Stop: 09/21/22 21:59 Last Admin: 08/22/22 21:01 Dose: 80 mg Bismuth Subsalicylate (Bismuth Subsalicylate Liqd 236 Ml) 15 ml PO PRN PRN PRN Reason: Loose Stool Stop: 09/20/22 18:36 Deutetrabenazine (Austedo 6mg Tab) 1 each PO HS GRIFFIN Stop: 09/21/22 21:59 Last Admin: 08/22/22 21:02 Dose: 1 each Deutetrabenazine (Austedo 9mg Tab) 1 each PO HS GRIFFIN Stop: 09/21/22 21:59 Last Admin: 08/22/22 21:02 Dose: 1 each Ezetimibe (Ezetimibe 10 Mg Tablet) 10 mg PO DAILY GRIFFIN Stop: 09/21/22 12:14 Last Admin: 08/23/22 09:01 Dose: 10 mg Hydroxyzine HCl (Hydroxyzine Hcl 25 Mg Tab) 50 mg PO HSZ PRN PRN Reason: Insomnia Stop: 09/20/22 18:36 Last Admin: 08/22/22 23:04 Dose: 50 mg Hydroxyzine HCl (Hydroxyzine Hcl 10 Mg Tab) 10 mg PO Q4H PRN PRN Reason: Anxiety Stop: 09/20/22 18:36 Last Admin: 08/22/22 16:00 Dose: 10 mg Magnesium Hydroxide (Magnesium Hydroxide Susp 30 Ml Udc) 30 ml PO DAILY PRN PRN Reason: Constipation Stop: 09/20/22 18:36 Miscellaneous (Remove Nicoderm Patch) 1 each N/A DAILY@0859 GRIFFIN Stop: 09/21/22 08:58 Last Admin: 08/23/22 09:01 Dose: 1 each Multivitamins (Multivitamin Tab) 1 tab PO DAILY GRIFFIN Stop: 09/21/22 12:14 Last Admin: 08/23/22 09:01 Dose: 1 tab Nicotine (Nicotine 21 Mg/24 Hr Tdsy) 21 mg TD QAM GRIFFIN Stop: 09/21/22 08:59 Last Admin: 08/23/22 09:01 Dose: 21 mg Nicotine 2mg Lozenge ~Non-Formulary Patient's Own Med 1 each PO Q2HWA PRN PRN Reason: nicotine cravings Stop: 09/21/22 13:54 Last Admin: 08/23/22 09:01 Dose: 1 tab Olanzapine (Olanzapine 5 Mg Tablet) 5 mg PO HS GRIFFIN Stop: 09/20/22 21:59 Last Admin: 08/22/22 21:01 Dose: 5 mg Oxybutynin Chloride (Oxybutynin Chloride Xl 5 Mg Tabcr) 15 mg PO DAILY GRIFFIN Stop: 09/21/22 12:14 Last Admin: 08/23/22 09:01 Dose: 15 mg Sodium Chloride (Sodium Chloride 0.65% Na Soln 45 Ml ([place])) 1 - 2 sprays NA PRN PRN PRN Reason: Nasal Dryness/Congestion Stop: 09/20/22 18:36 Mental Health & Subst Abuse Tx Psychiatrist Name of Psychiatrist: Tani Rowley- Merissa Muhammad Psychiatrist's Psychiatric Appointment Comment: [address] [facility], [place] [address] Therapist Name of Therapist: John Morales- Gladis Hughes Post Discharge Appointments Primary Care Physician Name Of Family Doctor/PCP: Moises Valdivia
[2022-08-23] MEDS: hydrOXYzine HCl 10 MG TAB PO PRN ×2 (10:25→18:02)
[2022-08-23] MEDS ORDERED: OLANZapine ZYDIS 5 MG ORALLY DIS. TAB PO PRN (10:30)
[2022-08-23] MEDS ORDERED: OLANZapine 10 MG/2.1 ML SDV IM PRN (10:32)
[2022-08-23] MEDS: OLANZapine 5 MG TABLET PO SCH (21:29)
[2022-08-23] MEDS: hydrOXYzine HCl 25 MG TAB PO PRN (21:30)
[2022-08-23] MEDS: ATORVASTATIN 40 MG TAB PO SCH (21:30)
[2022-08-23] MEDS: AUSTEDO 6 MG PO SCH (21:30)
[2022-08-23] MEDS: AUSTEDO 9 MG PO SCH (21:30)
[2022-08-24] MEDS: NICOTINE 2 MG PO PRN ×8 (07:34→21:31)
--- NOTE | 2022-08-24 07:57 | Psychiatric Progress Note ---
Date of Service August 24, 2022 Impression / Recommendations Impression Red Chase is a 66 year old woman with a history of BPAD and JELLY who was admitted for worsening depression, inability to care for herself and increased paranoia in the setting of medication non-adherence due to side effects. Diagnostically consistent with bipolar affective disorder current depressive episode with psychotic features. She is deemed unstable and requires psychiatric hospitalization for diagnostic clarification, safety and stabilization, medication management and development of further coping skills. 08/24/2022: Pt seemed to anticipate that I planned to bring up discharge plannning and preemptively announced that she's "not doing too well" and that she's "not ready for discharge". She reports that she "just can't stop thinking about" the possibility that there may have been someone in her house. When I asked if, at discharge, she'd feel comfortable returning to that house, pt assured me that she would. Announces that "I'm not going to ask you for more of those mints" then immediately starts to bargain with me to to order nicotine 2 mg lozenges ad jen repeating that "every 2 hours is nowhere near enough". Reviewed result of urine culture showing Proteus miriabilis bacteruria. 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 I couldn't get her to link that explicitly with her persecutory beliefs, but nor did she disavow this possibility when I brought it up. I asked her to speak with her and begin making plans for after discharge, whenever that may be. Has been tolerating olanzapine well with no reported adverse effects. 08/23/2022: Has been increasingly irritable since admission. She continues to refer to "things going on at the house" such as finding subtle scratches on appliances. She gives a somewhat anfractuous tale of feeling as if she had to leave her home due to being convinced someone was or had been in the house. She went to her mother's house while her mother was away in [place]. Pt notes that this house has smart locks, so it may well have other smarthome features. She became concerned that lights turned on and off seemingly on their own, but can't accept that they may have been programmed to do so in the agency owner's absence. She found the (smart) lock unlocked when she was certain she'd locked it. As with the lights, she can' t consider any prosaic explanations such as that it could have been misconfigured. She fled to her brother's house where again she saw evidence of mysterious doings. She is quite preoccupied with these thoughts. Pt reports she's been "using those nicotine mints" (nicotine lozenges) "[id number] all day long" and asks that I prescribe them that way here. I explained that this would be a very excessive dose of nicotine and that the way they're currently ordered (every 2 hours, in addition to 21 mg nicotine patch) was the most I'd be willing to order. She was not willing to consider that greatly excessive nicotine could have played a role in her symptoms. A while after the interview had concluded, pt accosted me and a staff member in the hallway, insisting I'd "promised to increase the mints" and was very difficult to redirect from this. We reviewed her medication history. She reports no benefit on lurasidone (but isn't sure how she used it), quetiapine "made the movements worse", and says she has taken no other similar medication (despite there putatively having been something previous to the quetiapine with which involuntary movements were initially associated). She's somewhat hesitant about olanzapine but has had no actual adverse experiences that she attributes to it. I reinforced that I think olanzapine is likely to be a good medication for her. Reviewed with pt her (normal) fasting glucose and lipids panel. 08/22/2022: Discussed medication treatment options in detail. Discussed risks, benefits and alternatives. Patient would like to start and consented to olanzapine for BPAD mood stabilizer. Reviewed side effects including but not limited to: movement (TD, NMS), cardiac (QTc prolongation), and metabolic (stroke, insulin resistance) and necessity for fasting lipid and glucose labwork and AIMS done with score of 2 (few notable symptoms as she is currently on Austedo). MNPR due to increased paranoia/anxiety (1) Bipolar affective disorder, depressed, severe, with psychotic behavior: Present on Admission?: Yes (2) JELLY (generalized anxiety disorder): Present on Admission?: Yes (3) Dyslipidemia: Plan 08/24/2022: * continue olanzapine 5 mg QHS * continue olanzapine ODT 5 mg PO or olanzapine 5 mg IM PRN psychosis or eduard given demonstrated tendency to escalate rapidly * continue deutetrabenazine * encourage family meeting * A private room remains medically necessary for the safety of self and others. 08/23/2022: * continue olanzapine 5 mg QHS * add olanzapine ODT 5 mg PO or olanzapine 5 mg IM PRN psychosis or eduard given demonstrated tendency to escalate rapidly * continue deutetrabenazine 08/22/2022: The patient was admitted to the [facility] on q15 min checks (behavioral with suicide precautions) for safety. The patient will participate in group, recreational, and milieu therapies and will be offered additional individual and family sessions as clinically appropriate. -Fasting glucose and lipid panel tomorrow AM -Start olanzapine 5mg HS -Continue prior to admission Austedo Inventory Assets Strengths: supportive relationships, willing to get treatment, outpatient providers Needs: safety and stabilization, medication adjustment, additional coping skills, increased outpatient services Suicide Risk Level Suicide Risk Level: Moderate (q15 min suicide checks) (severe depression with paranoia/psychosis but feels safe in the hospital, able to safety contract and agrees to let nursing/staff know should they develop plan, intent or feel unable to remain safe.) Suicide Risk Level Comments: Risk Factors Assessment Male: No : Yes Do You Have Access To A Gun?: Yes (the gun is at her brother's home) Health Problems: Yes Mental Health Diagnoses: Yes Substance Use Disorders: No Previous Attempt: No Family History of Suicide: No Previous Psychiatric Hospitalization: Yes Hopelessness: Yes Protective Factors Assessment : Yes Employed: No Stable Relationships: Yes Supportive Family: Yes Good Rapport with Provider: Yes Interval History Identifying Information RED CHASE is a 66-year-old F who currently lives in [place] with her , has a history of BPAD with history of psychotic depression, JELLY, and was admitted on 08/21/22 15:18 on a 201 voluntary commitment for severe depression and concern for worsening paranoia and inability care for herself. Chief Complaint "I'm not doing well". Review of Systems Sleep Information Total Hours of Sleep: 5.5 Meal Information Percent Meal Consumed - Breakfast: 100 Percent Meal Consumed - Lunch: 50 Percent Meal Consumed - Dinner: 100 Subjective Subjective Patient was seen & assessed and interval progress reviewed with treatment team (nursing and social work) Physical Exam Psychiatric Orientation: alert, oriented to person, oriented to place, oriented to time and + guarded Apperance: appropriately dressed and appropriately groomed Eye Contact: good eye contact and + fair eye contact Motor Behavior: no abnormal motor movements Speech: normal rate/rhythm/volume of speech Affect: + anxious affect and + irritable affect Mood: + anxious mood, + irritable mood and + dysphoric mood Thought Process: goal directed thought process, + circumstantial thought process and + tangential thought process Thought Content: + paranoid and reality based without delusions Suicidal Thoughts: denies suicidal thoughts, denies suicidal plan and denies suicidal intent Homicidal Thoughts: denies homicidal thoughts Hallucinations: no auditory hallucinations and no visual hallucinations Cognition: recent memory grossly intact, remote memory grossly intact, attention grossly intact and language grossly intact Estimated Intelligence: consistent with education level Insight: + fair insight Judgment: + fair judgement Vital Signs (Past 24 Hours) Last Vital Signs Temp 36.5 C 08/24/22 06:36 Pulse 85 08/24/22 06:36 Resp 16 08/24/22 06:36 BP 132/87 08/24/22 06:36 Pulse Ox 100 08/21/22 10:30 O2 Del Method Room Air 08/21/22 10:30 Results & Data ([facility]) Laboratory Results Laboratory Results - last 24 hr 08/23/22 07:07 Fasting Glucose 98 Triglycerides 100 Cholesterol 137 LDL Cholesterol, Calc 46 VLDL Cholesterol, Calc 20 HDL Cholesterol 71 Cholesterol/HDL Ratio 1.9 Current Inpatient Medications Current Inpatient Medications: Current Inpatient Medications Acetaminophen (Acetaminophen 325 Mg Tab) 650 mg PO Q4H PRN PRN Reason: Headache or Minor Fever Stop: 09/20/22 18:36 Last Admin: 08/23/22 17:54 Dose: 650 mg Al Hydrox/Mg Hydrox/Simethicone (Aluminum/Magnesium Susp 30 Ml Udc) 30 ml PO Q4H PRN PRN Reason: GI Upset Stop: 09/20/22 18:36 Albuterol (Albuterol Hfa 8 Gm Inhaler) 2 puffs INH QID PRN PRN Reason: Shortness Of Breath Or Wheezing Stop: 09/21/22 12:00 Atorvastatin Calcium (Atorvastatin 40 Mg Tab) 80 mg PO HS GRIFFIN Stop: 09/21/22 21:59 Last Admin: 08/23/22 21:30 Dose: 80 mg Bismuth Subsalicylate (Bismuth Subsalicylate Liqd 236 Ml) 15 ml PO PRN PRN PRN Reason: Loose Stool Stop: 09/20/22 18:36 Deutetrabenazine (Austedo 6mg Tab) 1 each PO HS GRIFFIN Stop: 09/21/22 21:59 Last Admin: 08/23/22 21:30 Dose: 1 each Deutetrabenazine (Austedo 9mg Tab) 1 each PO HS GRIFFIN Stop: 09/21/22 21:59 Last Admin: 08/23/22 21:30 Dose: 1 each Ezetimibe (Ezetimibe 10 Mg Tablet) 10 mg PO DAILY [facility] Stop: 09/21/22 12:14 Last Admin: 08/23/22 09:01 Dose: 10 mg Hydroxyzine HCl (Hydroxyzine Hcl 25 Mg Tab) 50 mg PO HSZ PRN PRN Reason: Insomnia Stop: 09/20/22 18:36 Last Admin: 08/23/22 21:30 Dose: 50 mg Hydroxyzine HCl (Hydroxyzine Hcl 10 Mg Tab) 10 mg PO Q4H PRN PRN Reason: Anxiety Stop: 09/20/22 18:36 Last Admin: 08/23/22 18:02 Dose: 10 mg Magnesium Hydroxide (Magnesium Hydroxide Susp 30 Ml Udc) 30 ml PO DAILY PRN PRN Reason: Constipation Stop: 09/20/22 18:36 Miscellaneous (Remove Nicoderm Patch) 1 each N/A DAILY@0859 [facility] Stop: 09/21/22 08:58 Last Admin: 08/23/22 09:01 Dose: 1 each Multivitamins (Multivitamin Tab) 1 tab PO DAILY [facility] Stop: 09/21/22 12:14 Last Admin: 08/23/22 09:01 Dose: 1 tab Nicotine (Nicotine 21 Mg/24 Hr Tdsy) 21 mg TD QAM [facility] Stop: 09/21/22 08:59 Last Admin: 08/23/22 09:01 Dose: 21 mg Nicotine 2mg Lozenge ~Non-Formulary Patient's Own Med 1 each PO Q2HWA PRN PRN Reason: nicotine cravings Stop: 09/21/22 13:54 Last Admin: 08/24/22 07:34 Dose: 1 tab Olanzapine (Olanzapine 5 Mg Tablet) 5 mg PO HS GRIFFIN Stop: 09/20/22 21:59 Last Admin: 08/23/22 21:29 Dose: 5 mg Olanzapine (Olanzapine Zydis 5 Mg Orally Dis. Tab) 5 mg PO Q6 PRN PRN Reason: psychosis or eduard Stop: 09/22/22 11:59 Olanzapine (Olanzapine 10 Mg/2.1 Ml Sdv) 5 mg IM Q6 PRN PRN Reason: psychosis or eduard if oral olanzapine cannot be administered Stop: 09/22/22 11:59 Oxybutynin Chloride (Oxybutynin Chloride Xl 5 Mg Tabcr) 15 mg PO DAILY GRIFFIN Stop: 09/21/22 12:14 Last Admin: 08/23/22 09:01 Dose: 15 mg Sodium Chloride (Sodium Chloride 0.65% Na Soln 45 Ml ([place])) 1 - 2 sprays NA PRN PRN PRN Reason: Nasal Dryness/Congestion Stop: 09/20/22 18:36 Mental Health & Subst Abuse Tx Psychiatrist Name of Psychiatrist: Tani Rowley- Merissa Muhammad Psychiatrist's Psychiatric Appointment Comment: [address] [facility], [place] [address] Therapist Name of Therapist: John Morales- Gladis Hughes Post Discharge Appointments Primary Care Physician Name Of Family Doctor/PCP: Moises Valdivia
[2022-08-24] MEDS: hydrOXYzine HCl 10 MG TAB PO PRN ×2 (08:19→16:06)
[2022-08-24] MEDS: MULTIVITAMIN TAB PO SCH (08:19)
[2022-08-24] MEDS: NICOTINE 21 MG/24 HR TDSY TD SCH (08:19)
[2022-08-24] MEDS: EZETIMIBE 10 MG TABLET PO SCH (08:19)
[2022-08-24] MEDS: OXYBUTYNIN CHLORIDE XL 5 MG TABCR PO SCH (08:19)
[2022-08-24] MEDS: ACETAMINOPHEN 325 MG TAB PO PRN ×2 (09:11→13:10)
[2022-08-24] MEDS: cephALEXin 500 MG CAP PO SCH ×4 (10:04→20:31)
[2022-08-24 11:41] LABS: 7-Aminoclonaz, Confirm NEGATIVE ng/mL (<25); Hydro-Alp Ur, GC/MS NEGATIVE ng/mL (<25); Hydroxyethylflurazepam, Conf NEGATIVE ng/mL (<50); Hydroxymidazolam Ur, GC/MS NEGATIVE ng/mL (<50); Hydroxytriazolam NEGATIVE ng/mL (<50); Lorazepam, Ur GC/MS NEGATIVE ng/mL (<50); Nordiazepam, Confirm NEGATIVE ng/mL (<50); Oxazepam Ur, GC/MS NEGATIVE ng/mL (<50); Temazepam, Confirm NEGATIVE ng/mL (<50)
[2022-08-24] MEDS: ATORVASTATIN 40 MG TAB PO SCH (21:15)
[2022-08-24] MEDS: hydrOXYzine HCl 25 MG TAB PO PRN ×2 (21:15→23:31)
[2022-08-24] MEDS: OLANZapine 5 MG TABLET PO SCH (21:15)
[2022-08-24] MEDS: AUSTEDO 9 MG PO SCH (21:16)
[2022-08-24] MEDS: AUSTEDO 6 MG PO SCH (21:17)
[2022-08-25] MEDS: NICOTINE 2 MG PO PRN ×7 (07:53→20:18)
[2022-08-25] MEDS: MULTIVITAMIN TAB PO SCH (07:54)
[2022-08-25] MEDS: NICOTINE 21 MG/24 HR TDSY TD SCH (07:54)
[2022-08-25] MEDS: EZETIMIBE 10 MG TABLET PO SCH (07:55)
[2022-08-25] MEDS: cephALEXin 500 MG CAP PO SCH ×4 (07:55→20:52)
[2022-08-25] MEDS: OXYBUTYNIN CHLORIDE XL 5 MG TABCR PO SCH (07:55)
[2022-08-25] MEDS: hydrOXYzine HCl 10 MG TAB PO PRN ×2 (08:34→15:14)
--- NOTE | 2022-08-25 09:30 | Psychiatric Progress Note ---
Date of Service August 25, 2022 Impression / Recommendations Impression Red Chase is a 66 year old woman with a history of BPAD and JELLY who was admitted for worsening depression, inability to care for herself and increased paranoia in the setting of medication non-adherence due to side effects. Diagnostically consistent with bipolar affective disorder current depressive episode with psychotic features. She is deemed unstable and requires psychiatric hospitalization for diagnostic clarification, safety and stabilization, medication management and development of further coping skills. 08/25/2022: I noted pt speaking calmly on the phone. As I approached, she hung up and began weeping profusely. She said "my told me I can' t go back home!". When I asked if he had said that explicitly, she responded "more or less" and when I asked exactly what he'd said she responded "he said 'well, you're the one who left'". Engaged in supportive therapy using cognitive tools such as reality- testing. Pt complained of insomnia last night and believes "it must be the Zyprexa becau se the Austedo used to knock me right out". She also thinks "the dose is too low" and asked if it could be changed to 10 mg in the morning. 08/24/2022: Pt seemed to anticipate that I planned to bring up discharge planning and preemptively announced that she's "not doing too well" and that she's "not ready for discharge". She reports that she "just can't stop thinking about" the possibility that there may have been someone in her house. When I asked if, at discharge, she'd feel comfortable returning to that house, pt assured me that she would. Announces that "I'm not going to ask you for more of those mints" then immediately starts to bargain with me to to order nicotine 2 mg lozenges ad jen repeating that "every 2 hours is nowhere near enough". Reviewed result of urine culture showing Proteus miriabilis bacteruria. 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 I couldn't get her to link that explicitly with her persecutory beliefs, but nor did she disavow this possibility when I brought it up. I asked her to speak with her and begin making plans for after discharge, whenever that may be. Has been tolerating olanzapine well with no reported adverse effects. 08/23/2022: Has been increasingly irritable since admission. She continues to refer to "t hings going on at the house" such as finding subtle scratches on appliances. She gives a somewhat anfractuous tale of feeling as if she had to leave her home due to being convinced someone was or had been in the house. She went to her mother's house while her mother was away in [place]. Pt notes that this house has smart locks, so it may well have other smarthome features. She became concerned that lights turned on and off seemingly on their own, but can't accept that they may have been programmed to do so in the outsoles channel opener's absence. She found the (smart) lock unlocked when she was certain she'd locked it. As with the lights, she can't consider any prosaic explanations such as that it could have been misconfigured. She fled to her brother's house where again she saw evidence of mysterious doings. She is quite preoccupied with these thoughts. Pt reports she's been "using those nicotine mints" (nicotine lozenges) "[id number] all day long" and asks that I prescribe them that way here. I explained that this would be a very excessive dose of nicotine and that the way they're currently ordered (every 2 hours, in addition to 21 mg nicotine patch) was the most I'd be willing to order. She was not willing to consider that greatly excessive nicotine could have played a role in her symptoms. A while after the interview had concluded, pt accosted me and a staff member in the hallway, insisting I'd "promised to increase the mints" and was very difficult to redirect from this. We reviewed her medication history. She reports no benefit on lurasidone (but isn't sure how she used it), quetiapine "made the movements worse", and says she has taken no other similar medication (despite there putatively having been something previous to the quetiapine with which involuntary movements were initially associated). She's somewhat hesitant about olanzapine but has had no actual adverse experiences that she attributes to it. I reinforced that I think olanzapine is likely to be a good medication for her. Reviewed with pt her (normal) fasting glucose and lipids panel. 08/22/2022: Discussed medication treatment options in detail. Discussed risks, benefits and alternatives. Patient would like to start and consented to olanzapine for BPAD mood stabilizer. Reviewed side effects including but not limited to: movement (TD, NMS), cardiac (QTc prolongation), and metabolic (stroke, insulin resistanc e) and necessity for fasting lipid and glucose labwork and AIMS done with score of 2 (few notable symptoms as she is currently on Austedo). MNPR due to increased paranoia/anxiety (1) Bipolar affective disorder, depressed, severe, with psychotic behavior: Present on Admission?: Yes (2) JELLY (generalized anxiety disorder): Present on Admission?: Yes (3) Dyslipidemia: (4) UTI (urinary tract infection), bacterial: Plan 08/25/2022: * increase olanzapine to 10 mg, change schedule to QAM * olanzapine 5 mg IM PRN psychosis or eduard given demonstrated tendency to escalate rapidly * continue deutetrabenazine * will plan family meeting today to form an explicit discharge plan and to minimize opportunities for splitting * A private room remains medically necessary for the safety of self and others. 08/24/2022: * continue olanzapine 5 mg QHS * continue olanzapine ODT 5 mg PO or olanzapine 5 mg IM PRN psychosis or eduard given demonstrated tendency to escalate rapidly * continue deutetrabenazine * encourage family meeting * A private room remains medically necessary for the safety of self and others. 08/23/2022: * continue olanzapine 5 mg QHS * add olanzapine ODT 5 mg PO or olanzapine 5 mg IM PRN psychosis or eduard given demonstrated tendency to escalate rapidly * continue deutetrabenazine 08/22/2022: The patient was admitted to the [facility] ([facility] unit) on q15 min checks (behavioral with suicide precautions) for safety. The patient will participate in group, recreational, and milieu therapies and will be offered additional individual and family sessions as clinically appropriate. -Fasting glucose and lipid panel tomorrow AM -Start olanzapine 5mg HS -Continue prior to admission Austedo Inventory Assets Strengths: supportive relationships, willing to get treatment, outpatient providers Needs: safety and stabilization, medication adjustment, additional coping skills, increased outpatient services Suicide Risk Level Suicide Risk Level: Moderate (q15 min suicide checks) (severe depression with paranoia/psychosis but feels safe in the hospital, able to safety contract and agrees to let nursing/staff know should they develop plan, intent or feel unable to remain safe.) Suicide Risk Level Comments: Pt not currently reporting suicidal thoughts, but remains labile and has been catastrophizing Risk Factors Assessment Male: No : Yes Do You Have Access To A Gun?: Yes (the gun is at her brother's home) Health Problems: Yes Mental Health Diagnoses: Yes Substance Use Disorders: No Previous Attempt: No Family History of Suicide: No Previous Psychiatric Hospitalization: Yes Hopelessness: Yes Protective Factors Assessment : Yes Employed: No Stable Relationships: Yes Supportive Family: Yes Good Rapport with Provider: Yes Interval History Identifying Information RED CHASE is a 66-year-old F who currently lives in [place] with her , has a history of BPAD with history of psychotic depression, JELLY, and was admitted on 08/21/22 15:18 on a 201 voluntary commitment for severe depression and concern for worsening paranoia and inability care for herself. Chief Complaint "I can't go home!". Review of Systems Sleep Information Total Hours of Sleep: 5 Sleep Comments: Required two doses of 50mg of Vistaril before being able to fall asleep Meal Information Percent Meal Consumed - Breakfast: 90 Percent Meal Consumed - Lunch: 50 Percent Meal Consumed - Dinner: 100 Subjective Subjective Patient was seen & assessed and interval progress reviewed with treatment team (nursing and social work) Physical Exam Psychiatric Orientation: alert, oriented to person, oriented to place, oriented to time and + guarded Apperance: appropriately dressed and appropriately groomed Eye Contact: + fair eye contact Motor Behavior: no abnormal motor movements Speech: normal rate/rhythm/volume of speech Affect: + anxious affect, + tearful affect and + labile affect Mood: + anxious mood and + dysphoric mood Thought Process: + circumstantial thought process and + tangential thought process Thought Content: + paranoid Suicidal Thoughts: denies suicidal thoughts, denies suicidal plan and denies suicidal intent Homicidal Thoughts: denies homicidal thoughts Hallucinations: no auditory hallucinations and no visual hallucinations Cognition: recent memory grossly intact, remote memory grossly intact, attention grossly intact and language grossly intact Estimated Intelligence: consistent with education level Insight: + limited insight Judgment: + fair judgement Vital Signs (Past 24 Hours) Last Vital Signs Temp 36.6 C 08/25/22 06:41 Pulse 97 H 08/25/22 06:42 Resp 16 08/25/22 06:41 BP 149/82 H 08/25/22 06:42 Pulse Ox 100 08/21/22 10:30 O2 Del Method Room Air 08/21/22 10:30 Results & Data ([facility]) Laboratory Results Laboratory Results - last 24 hr 08/21/22 10:50 U OH-Alprazolam Confrm NEGATIVE 7-Amino Clonazepam NEGATIVE Ur Nordiazepam Confirm NEGATIVE U OH-ethylflurazepam NEGATIVE U Lorazepam Cnf GC/MS NEGATIVE U Oxazepam Confm GC/MS NEGATIVE Ur Temazepam Confirm NEGATIVE U OH-Triazolam Confirm NEGATIVE U OH-Midazolam Confirm NEGATIVE Drug Screen Comment SEE NOTE Current Inpatient Medications Current Inpatient Medications: Current Inpatient Medications Acetaminophen (Acetaminophen 325 Mg Tab) 650 mg PO Q4H PRN PRN Reason: Headache or Minor Fever Stop: 09/20/22 18:36 Last Admin: 08/24/22 13:10 Dose: 650 mg Al Hydrox/Mg Hydrox/Simethicone (Aluminum/Magnesium Susp 30 Ml Udc) 30 ml PO Q4H PRN PRN Reason: GI Upset Stop: 09/20/22 18:36 Albuterol (Albuterol Hfa 8 Gm Inhaler) 2 puffs INH QID PRN PRN Reason: Shortness Of Breath Or Wheezing Stop: 09/21/22 12:00 Atorvastatin Calcium (Atorvastatin 40 Mg Tab) 80 mg PO HS GRIFFIN Stop: 09/21/22 21:59 Last Admin: 08/24/22 21:15 Dose: 80 mg Bismuth Subsalicylate (Bismuth Subsalicylate Liqd 236 Ml) 15 ml PO PRN PRN PRN Reason: Loose Stool Stop: 09/20/22 18:36 Cephalexin HCl (Cephalexin 500 Mg Cap) 500 mg PO QID GRIFFIN Stop: 08/29/22 08:59 Last Admin: 08/25/22 07:55 Dose: 500 mg Deutetrabenazine (Austedo 6mg Tab) 1 each PO HS GRIFFIN Stop: 09/21/22 21:59 Last Admin: 08/24/22 21:17 Dose: 1 each Deutetrabenazine (Austedo 9mg Tab) 1 each PO HS GRIFFIN Stop: 09/21/22 21:59 Last Admin: 08/24/22 21:16 Dose: 1 each Ezetimibe (Ezetimibe 10 Mg Tablet) 10 mg PO DAILY GRIFFIN Stop: 09/21/22 12:14 Last Admin: 08/25/22 07:55 Dose: 10 mg Hydroxyzine HCl (Hydroxyzine Hcl 25 Mg Tab) 50 mg PO HSZ PRN PRN Reason: Insomnia Stop: 09/20/22 18:36 Last Admin: 08/24/22 23:31 Dose: 50 mg Hydroxyzine HCl (Hydroxyzine Hcl 10 Mg Tab) 10 mg PO Q4H PRN PRN Reason: Anxiety Stop: 09/20/22 18:36 Last Admin: 08/25/22 08:34 Dose: 10 mg Magnesium Hydroxide (Magnesium Hydroxide Susp 30 Ml Udc) 30 ml PO DAILY PRN PRN Reason: Constipation Stop: 09/20/22 18:36 Miscellaneous (Remove Nicoderm Patch) 1 each N/A DAILY@0859 [facility] Stop: 09/21/22 08:58 Last Admin: 08/25/22 07:59 Dose: 1 each Multivitamins (Multivitamin Tab) 1 tab PO DAILY [facility] Stop: 09/21/22 12:14 Last Admin: 08/25/22 07:54 Dose: 1 tab Nicotine (Nicotine 21 Mg/24 Hr Tdsy) 21 mg TD QAM [facility] Stop: 09/21/22 08:59 Last Admin: 08/25/22 07:54 Dose: 21 mg Nicotine 2mg Lozenge ~Non-Formulary Patient's Own Med 1 each PO Q2HWA PRN PRN Reason: nicotine cravings Stop: 09/21/22 13:54 Last Admin: 08/25/22 07:53 Dose: 1 tab Olanzapine (Olanzapine Zydis 5 Mg Orally Dis. Tab) 5 mg PO Q6 PRN PRN Reason: psychosis or eduard Stop: 09/22/22 11:59 Olanzapine (Olanzapine 10 Mg/2.1 Ml Sdv) 5 mg IM Q6 PRN PRN Reason: psychosis or eduard if oral olanzapine cannot be administered Stop: 09/22/22 11:59 Olanzapine (Olanzapine 10 Mg Tab) 10 mg PO QAM [facility] Stop: 09/24/22 09:29 Oxybutynin Chloride (Oxybutynin Chloride Xl 5 Mg Tabcr) 15 mg PO DAILY GRIFFIN Stop: 09/21/22 12:14 Last Admin: 08/25/22 07:55 Dose: 15 mg Sodium Chloride (Sodium Chloride 0.65% Na Soln 45 Ml ([place])) 1 - 2 sprays NA PRN PRN PRN Reason: Nasal Dryness/Congestion Stop: 09/20/22 18:36 Mental Health & Subst Abuse Tx Psychiatrist Name of Psychiatrist: Tani Rowley- Merissa Muhammad Psychiatrist's Psychiatric Appointment Comment: [address] [place] [address] Therapist Name of Therapist: John Morales- Gladis Hughes Post Discharge Appointments Primary Care Physician Name Of Family Doctor/PCP: Moises Valdivia E&M Selection based on Time Time Spent Minutes Spent on Pre-Visit Items: 12 Minutes Spent During Visit: 28 Minutes Spent Post-Visit: 15 Total Minutes Spent: 55
[2022-08-25] MEDS: OLANZapine 10 MG TAB PO SCH (10:43)
[2022-08-25] MEDS: MAGNESIUM HYDROXIDE SUSP 30 ML UDC PO PRN (15:14)
[2022-08-25] MEDS: AUSTEDO 9 MG PO SCH (20:50)
[2022-08-25] MEDS: ATORVASTATIN 40 MG TAB PO SCH (20:51)
[2022-08-25] MEDS: AUSTEDO 6 MG PO SCH (20:51)
[2022-08-26] MEDS: NICOTINE 2 MG PO PRN ×3 (07:00→10:52)
[2022-08-26] MEDS: hydrOXYzine HCl 10 MG TAB PO PRN (08:07)
[2022-08-26] MEDS: cephALEXin 500 MG CAP PO SCH (08:15)
[2022-08-26] MEDS: EZETIMIBE 10 MG TABLET PO SCH (08:15)
[2022-08-26] MEDS: OLANZapine 10 MG TAB PO SCH (08:16)
[2022-08-26] MEDS: NICOTINE 21 MG/24 HR TDSY TD SCH (08:16)
[2022-08-26] MEDS: OXYBUTYNIN CHLORIDE XL 5 MG TABCR PO SCH (08:16)
[2022-08-26] MEDS: MULTIVITAMIN TAB PO SCH (08:16)
[2022-08-26] MEDS: MAGNESIUM HYDROXIDE SUSP 30 ML UDC PO PRN (09:13)
--- NOTE | 2022-08-26 09:14 | Psychiatric Progress Note ---
Date of Service August 26, 2022 Impression / Recommendations Impression Red Chase is a 66 year old woman with a history of BPAD and JELLY who was admitted for worsening depression, inability to care for herself and increased paranoia in the setting of medication non-adherence due to side effects. Diagnostically consistent with bipolar affective disorder current depressive episode with psychotic features. She is deemed unstable and requires psychiatric hospitalization for diagnostic clarification, safety and stabilization, medication management and development of further coping skills. 08/26/2022: Pt has been working assiduously at sabotaging her planned discharge. Has been telling us that her has been refusing to speak with us (which is not the case) and that she thinks he won't participate in the planned family meeting. Now she wants to include her daughter, who lives in [place] and with whom she's had little contact recently. Has been intimating that she will object formally to discharge. However, she still doesn't really acknowledge any psychiatric problems other than anxiety - the primary reason for which she was admitted was the belief that there were unseen intruders everywhere she stayed, but she has not reported believing that's the case here (though she does still say "it was definitely happening at home"). She describes herself as "unstable", and she does present with very abrupt and dramatic but tearless episodes of apparent crying, but those episodes apart from being somewhat difficult to accept as reflective of her emotional state are strongly correlated with interactions with clinical staff while reporting that she's "not stable enough for discharge". They are not seen at other times, including during phone calls that she later describes as having been emotionally devastating. Pt has been engaging in a broad range of splitting behaviors, including telling other patients that I had not seen her at all yesterday, even after a patient told her he'd seen the two of us talking. She made the same complaint to nurses, who reminded her that they'd seen us talking following which I went straightaway to the nurses' station to order the medication change pt and I had just discussed. I am concerned that the longer she remains the more primitive her splitting behaviors are likely to become. Denies any problem attributable to increase in olanzapine from 5 mg to 10 mg and change in administration from HS to AM. 08/25/2022: I noted pt speaking calmly on the phone. As I approached, she hung up and began weeping profusely. She said "my told me I can' t go back home!". When I asked if he had said that explicitly, she responded "more or less" and when I asked exactly what he'd said she responded "he said 'well, you're the one who left'". Engaged in supportive therapy using cognitive tools such as reality- testing. Pt complained of insomnia last night and believes "it must be the Zyprexa because the Austedo used to knock me right out". She also thinks "the dose is too low" and asked if it could be changed to 10 mg in the morning. 08/24/2022: Pt seemed to anticipate that I planned to bring up discharge planning and preemptively announced that she's "not doing too well" and that she's "not ready for discharge". She reports that she "just can't stop thinking about" the possibility that there may have been someone in her house. When I asked if, at discharge, she'd feel comfortable returning to that house, pt assured me that she would. Announces that "I'm not going to ask you for more of those mints" then immediately starts to bargain with me to to order nicotine 2 mg lozenges ad jen repeating that "every 2 hours is nowhere near enough". Reviewed result of urine culture showing Proteus miriabilis bacteruria. 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 I couldn't get her to link that explicitly with her persecutory beliefs, but nor did she disavow this possibility when I brought it up. I asked her to speak with her and begin making plans for after discharge, whenever that may be. Has been tolerating olanzapine well with no reported adverse effects. 08/23/2022: Has been increasingly irritable since admission. She continues to refer to "things going on at the house" such as finding subtle scratches on appliances. She gives a somewhat anfractuous tale of feeling as if she had to leave her home due to being convinced someone was or had been in the house. She went to her mother's house while her mother was away in [place]. Pt notes that this house has smart locks, so it may well have other smarthome features. She became concerned that lights turned on and off seemingly on their own, but can't accept that they may have been programmed to do so in the pad cutter's absence. She found the (smart) lock unlocked when she was certain she'd locked it. As with the lights, she can't consider any prosaic explanations such as that it could have been misconfigured. She fled to her brother's house where again she saw evidence of mysterious doings. She is quite preoccupied with these thoughts. Pt reports she's been "using those nicotine mints" (nicotine lozenges) "back-to- back all day long" and asks that I prescribe them that way here. I explained that this would be a very excessive dose of nicotine and that the way they're currently ordered (every 2 hours, in addition to 21 mg nicotine patch) was the most I'd be willing to order. She was not willing to consider that greatly excessive nicotine could have played a role in her symptoms. A while after the interview had concluded, pt accosted me and a staff member in the hallway, insisting I'd "promised to increase the mints" and was very difficult to redirect from this. We reviewed her medication history. She reports no benefit on lurasidone (but isn't sure how she used it), quetiapine "made the movements worse", and says she has taken no other similar medication (despite there putatively having been something previous to the quetiapine with which involuntary movements were initially associated). She's somewhat hesitant about olanzapine but has had no actual adverse experiences that she attributes to it. I reinforced that I think olanzapine is likely to be a good medication for her. Reviewed with pt her (normal) fasting glucose and lipids panel. 08/22/2022: Discussed medication treatment options in detail. Discussed risks, benefits and alternatives. Patient would like to start and consented to olanzapine for BPAD mood stabilizer. Reviewed side effects including but not limited to: movement (TD, NMS), cardiac (QTc prolongation), and metabolic (stroke, insulin resistance) and necessity for fasting lipid and glucose labwork and AIMS done with score of 2 (few notable symptoms as she is currently on Austedo). MNPR due to increased paranoia/anxiety (1) Bipolar affective disorder, depressed, severe, with psychotic behavior: (2) JELLY (generalized anxiety disorder): (3) Dyslipidemia: (4) UTI (urinary tract infection), bacterial: Plan 08/26/2022: * continue olanzapine 10 mg QAM * continue olanzapine 5 mg IM PRN psychosis or eduard given demonstrated tendency to escalate rapidly * continue deutetrabenazine * will hold family meeting today to form an explicit discharge plan and to minimize opportunities for splitting * A private room remains medically necessary for the safety of self and others. 08/25/2022: * increase olanzapine to 10 mg, change schedule to QAM * continue olanzapine 5 mg IM PRN psychosis or eduard given demonstrated tendency to escalate rapidly * continue deutetrabenazine * will plan family meeting today to form an explicit discharge plan and to minimize opportunities for splitting * A private room remains medically necessary for the safety of self and others. 08/24/2022: * continue olanzapine 5 mg QHS * continue olanzapine ODT 5 mg PO or olanzapine 5 mg IM PRN psychosis or eduard given demonstrated tendency to escalate rapidly * continue deutetrabenazine * encourage family meeting * A private room remains medically necessary for the safety of self and others. 08/23/2022: * continue olanzapine 5 mg QHS * add olanzapine ODT 5 mg PO or olanzapine 5 mg IM PRN psychosis or eduard given demonstrated tendency to escalate rapidly * continue deutetrabenazine 08/22/2022: The patient was admitted to the [facility] on q15 min checks (behavioral with suicide precautions) for safety. The patient will participate in group, recreational, and milieu therapies and will be offered additional individual and family sessions as clinically appropriate. -Fasting glucose and lipid panel tomorrow AM -Start olanzapine 5mg HS -Continue prior to admission Austedo Inventory Assets Strengths: supportive relationships, willing to get treatment, outpatient providers Needs: safety and stabilization, medication adjustment, additional coping skills, increased outpatient services Suicide Risk Level Suicide Risk Level: Moderate (q15 min suicide checks) (severe depression with paranoia/psychosis but feels safe in the hospital, able to safety contract and agrees to let nursing/staff know should they develop plan, intent or feel unable to remain safe.) Suicide Risk Level Comments: Pt not currently reporting suicidal thoughts, but remains labile and has been catastrophizing Risk Factors Assessment Male: No : Yes Do You Have Access To A Gun?: Yes (the gun is at her brother's home) Health Problems: Yes Mental Health Diagnoses: Yes Substance Use Disorders: No Previous Attempt: No Family History of Suicide: No Previous Psychiatric Hospitalization: Yes Hopelessness: Yes Protective Factors Assessment : Yes Employed: No Stable Relationships: Yes Supportive Family: Yes Good Rapport with Provider: Yes Interval History Identifying Information RED CHASE is a 66-year-old F who currently lives in [place] with her , has a history of BPAD with history of psychotic depression, JELLY, and was admitted on 08/21/22 15:18 on a 201 voluntary commitment for severe depr ession and concern for worsening paranoia and inability care for herself. Chief Complaint "[]". Review of Systems Sleep Information Total Hours of Sleep: 7.5 Sleep Comments: Required two doses of 50mg of Vistaril before being able to fall asleep Meal Information Percent Meal Consumed - Breakfast: 90 Percent Meal Consumed - Lunch: 80 Percent Meal Consumed - Dinner: 90 Subjective Subjective Patient was seen & assessed and interval progress reviewed with [treatment team] [nursing and social work] Physical Exam Psychiatric Orientation: alert, oriented to person, oriented to place, oriented to time and + guarded Apperance: appropriately dressed and appropriately groomed Eye Contact: + fair eye contact Motor Behavior: no abnormal motor movements Speech: normal rate/rhythm/volume of speech Affect: + labile affect and + irritable affect Mood: + anxious mood, + irritable mood and + dysphoric mood Thought Process: + circumstantial thought process and + tangential thought process Thought Content: + paranoid Suicidal Thoughts: denies suicidal thoughts, denies suicidal plan and denies suicidal intent Homicidal Thoughts: denies homicidal thoughts Hallucinations: no auditory hallucinations and no visual hallucinations Cognition: recent memory grossly intact, remote memory grossly intact, attention grossly intact and language grossly intact Estimated Intelligence: consistent with education level Insight: + limited insight Judgment: + limited judgement Vital Signs (Past 24 Hours) Last Vital Signs Temp 36.9 C 08/26/22 06:47 Pulse 80 08/26/22 06:48 Resp 16 08/26/22 06:47 BP 177/83 H 08/26/22 06:48 Pulse Ox 100 08/21/22 10:30 O2 Del Method Room Air 08/21/22 10:30 Results & Data ([facility]) Current Inpatient Medications Current Inpatient Medications: Current Inpatient Medications Acetaminophen (Acetaminophen 325 Mg Tab) 650 mg PO Q4H PRN PRN Reason: Headache or Minor Fever Stop: 09/20/22 18:36 Last Admin: 08/24/22 13:10 Dose: 650 mg Al Hydrox/Mg Hydrox/Simethicone (Aluminum/Magnesium Susp 30 Ml Udc) 30 ml PO Q4H PRN PRN Reason: GI Upset Stop: 09/20/22 18:36 Albuterol (Albuterol Hfa 8 Gm Inhaler) 2 puffs INH QID PRN PRN Reason: Shortness Of Breath Or Wheezing Stop: 09/21/22 12:00 Atorvastatin Calcium (Atorvastatin 40 Mg Tab) 80 mg PO HS GRIFFIN Stop: 09/21/22 21:59 Last Admin: 08/25/22 20:51 Dose: 80 mg Bismuth Subsalicylate (Bismuth Subsalicylate Liqd 236 Ml) 15 ml PO PRN PRN PRN Reason: Loose Stool Stop: 09/20/22 18:36 Cephalexin HCl (Cephalexin 500 Mg Cap) 500 mg PO QID GRIFFIN Stop: 08/29/22 08:59 Last Admin: 08/26/22 08:15 Dose: 500 mg Deutetrabenazine (Austedo 6mg Tab) 1 each PO HS GRIFFIN Stop: 09/21/22 21:59 Last Admin: 08/25/22 20:51 Dose: 1 each Deutetrabenazine (Austedo 9mg Tab) 1 each PO HS GRIFFIN Stop: 09/21/22 21:59 Last Admin: 08/25/22 20:50 Dose: 1 each Ezetimibe (Ezetimibe 10 Mg Tablet) 10 mg PO DAILY GRIFFIN Stop: 09/21/22 12:14 Last Admin: 08/26/22 08:15 Dose: 10 mg Hydroxyzine HCl (Hydroxyzine Hcl 25 Mg Tab) 50 mg PO HSZ PRN PRN Reason: Insomnia Stop: 09/20/22 18:36 Last Admin: 08/24/22 23:31 Dose: 50 mg Hydroxyzine HCl (Hydroxyzine Hcl 10 Mg Tab) 10 mg PO Q4H PRN PRN Reason: Anxiety Stop: 09/20/22 18:36 Last Admin: 08/26/22 08:07 Dose: 10 mg Magnesium Hydroxide (Magnesium Hydroxide Susp 30 Ml Udc) 30 ml PO DAILY PRN PRN Reason: Constipation Stop: 09/20/22 18:36 Last Admin: 08/25/22 15:14 Dose: 30 ml Miscellaneous (Remove Nicoderm Patch) 1 each N/A DAILY@[id number] [facility] Stop: 09/21/22 08:58 Last Admin: 08/26/22 08:21 Dose: 1 each Multivitamins (Multivitamin Tab) 1 tab PO DAILY [facility] Stop: 09/21/22 12:14 Last Admin: 08/26/22 08:16 Dose: 1 tab Nicotine (Nicotine 21 Mg/24 Hr Tdsy) 21 mg TD QAM [facility] Stop: 09/21/22 08:59 Last Admin: 08/26/22 08:16 Dose: 21 mg Nicotine 2mg Lozenge ~Non-Formulary Patient's Own Med 1 each PO Q2HWA PRN PRN Reason: nicotine cravings Stop: 09/21/22 13:54 Last Admin: 08/26/22 08:47 Dose: 1 tab Olanzapine (Olanzapine Zydis 5 Mg Orally Dis. Tab) 5 mg PO Q6 PRN PRN Reason: psychosis or eduard Stop: 09/22/22 11:59 Olanzapine (Olanzapine 10 Mg/2.1 Ml Sdv) 5 mg IM Q6 PRN PRN Reason: psychosis or eduard if oral olanzapine cannot be administered Stop: 09/22/22 11:59 Olanzapine (Olanzapine 10 Mg Tab) 10 mg PO QAM [facility] Stop: 09/24/22 09:29 Last Admin: 08/26/22 08:16 Dose: 10 mg Oxybutynin Chloride (Oxybutynin Chloride Xl 5 Mg Tabcr) 15 mg PO DAILY [facility] Stop: 09/21/22 12:14 Last Admin: 08/26/22 08:16 Dose: 15 mg Sodium Chloride (Sodium Chloride 0.65% Na Soln 45 Ml ([place])) 1 - 2 sprays NA PRN PRN PRN Reason: Nasal Dryness/Congestion Stop: 09/20/22 18:36 Mental Health & Subst Abuse Tx Psychiatrist Name of Psychiatrist: Tani Muhammad Psychiatrist's Date Of Appointment With Psychiatric Provider: 09/04/2022 Time of Appointment with Psychiatrist: 10:40am Psychiatric Appointment Comment: [address] [facility], [place] [address] Therapist Name of Therapist: John Morales- Gladis Hughes Time of Therapist Appointment: please follow up as needed until new [place] services begin Post Discharge Appointments Primary Care Physician Name Of Family Doctor/PCP: [facility] Time of Appointment with PCP: please follow up as needed Provider Appointment Comment: [address], [place] [address] Contact Information Discharge Phone Number: [phone] Discharge Address: [facility] [address] [place] [address] E[employer]M Selection based on Time Time Spent Minutes Spent on Pre-Visit Items: 12 (multidisciplinary treatment team meeting, review of record, including reading nursing and social work notes, coordination of care) Minutes Spent During Visit: 25 (interview, medication education, supportive psychotherapy using cognitive-behavioral tools including addressing cognitive distortions) Minutes Spent Post-Visit: 11 (documentation, coordination of care, communication with relevant members of the treatment team) Total Minutes Spent: 48
--- NOTE | 2022-08-26 10:46 | Discharge Summary ---
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 DAILY ezetimibe 10 mg Tablet 10 mg PO DAILY Austedo 6 mg Tablet 6 mg PO BID Austedo 9 mg Tablet 9 mg PO BID Discontinued multivitamin [Hair,Nails and Skin Vitamin] Tablet 1 tab PO DAILY lurasidone [Latuda] 80 mg Tablet 80 mg PO DAILY Rx Instructions: must administer with food (at least 350 calories) Discharge Orders: Discharge Order (Routine); Ordered 08/26/22 Ordered By: Jimmy Crane Admission Data Admit Date/Time: 08/21/22 15:18 Attending Provider: Sveta White Admit Provider: Sveta White Primary Care Provider: Jimmy Valdivia Coding Level of Care Code 72058 D/C day mgmt > 30 min Diagnoses Bipolar affective disorder, depressed, severe, with psychotic behavior F31.5 JELLY (generalized anxiety disorder) F41.1 Dyslipidemia E78.5 UTI (urinary tract infection), bacterial N39.0; A49.9 Time Spent (min) 38
== END 2022-08-26 11:45 | disposition home or self-care (01) | DRG 885 ==
LOC: ED 10:22 → 3S 15:18